=== PATIENT | female | born 1990 | race African-American/Black ===

== ENCOUNTER 2023-01-01 06:04 | Day surgery (SDC) | payer MEDICAID ==
[2022-12-31 16:13] LABS: BASOPHILS # (AUTO) 0.03 K/uL (0.00-0.20); BASOPHILS % (AUTO) 0.5 % (0.0-5.0); EOSINOPHILS # (AUTO) 0.34 K/uL (0.00-0.70); EOSINOPHILS % (AUTO) 5.2 % (0.0-8.0); HEMATOCRIT 33.9 % (36-48); IMMATURE GRANULOCYTE ABSOLUTE 0.02 K/uL (0-1); LYMPHOCYTES # (AUTO) 1.7 K/uL (1.0-4.8); LYMPHOCYTES % (AUTO) 25.5 % (21.0-51.0); MEAN CORPUSCULAR HEMOGLOBIN 29.6 pg (27.0-33.0); MEAN CORPUSCULAR HGB CONC 32.4 g/dL (32.0-36.0); MEAN CORPUSCULAR VOLUME 91.4 fL (79-99); MONOCYTES # (AUTO) 0.4 K/uL (0.1-1.0); MONOCYTES % (AUTO) 6.6 % (3.0-13.0); NEUTROPHILS % (AUTO) 61.9 % (40.0-77.0); PLATELET COUNT (AUTO) 289 K/uL (130-400); RED BLOOD CELL COUNT(AUTO) 3.71 MIL/uL (4.00-5.50); RED CELL DISTRIBUTION WIDTH 14.6 % (11.0-15.5); WHITE BLOOD COUNT (AUTO) 6.5 K/uL (4.8-10.8)
[2022-12-31 16:22] LABS: CREATININE 0.8 mg/dL (0.5-1.5); POTASSIUM 4.1 mmol/L (3.5-5.1)
[2022-12-31 16:48] VITALS: BP 100/55; PULSE 55; RESP 16
[2023-01-01] VITALS (21 sets, daily range): BP systolic 94–118; BP diastolic 59–90; PULSE 48–86; RESP 12–18
[~2023-01-01] VITALS: Ht 157.5 cm; Wt 69.8 kg
[~2023-01-01 06:04] MED LIST: MELO-108 PO; MONT-39 PO
[2023-01-01] MEDS ORDERED: CEFAZOLIN SODIUM 2 GM VIAL ONE (06:23)
[2023-01-01] MEDS ORDERED: LACTATED RINGERS 1000ML 1,000 ML IV ONE (06:23)
[2023-01-01] MEDS ORDERED: MIDAZOLAM HCL 1 MG/ML 2ML VIAL ONE (06:54)
[2023-01-01] MEDS ORDERED: PROPOFOL 10 MG/ML 20ML VIAL IV ONE (06:54)
[2023-01-01] MEDS ORDERED: FENTANYL CITRATE PF 50 MCG/1 ML 2ML VIAL ONE ×2 (06:55→07:09)
[2023-01-01] MEDS ORDERED: ROCURONIUM 10MG/1ML SYR 10 MG/ML ML ONE (06:55)
[2023-01-01] MEDS ORDERED: EPHEDRINE SULFATE 50 MG/ML AMPULE ONE (07:09)
[2023-01-01] MEDS ORDERED: ONDANSETRON 4MG INJ ONE ×2 (07:17→08:52)
[2023-01-01] MEDS ORDERED: PHENYLEPHRINE HCL 10 MG/ML 1ML VIAL IV ONE (07:35)
[2023-01-01] MEDS ORDERED: KETOROLAC 30MG VIAL (30MG/ML) ONE (07:58)
[2023-01-01] MEDS ORDERED: NEOSTIGMINE 5MG/5ML SYR IV ONE (08:11)
[2023-01-01] MEDS ORDERED: GLYCOPYRROLATE 1 MG/5 ML SYRINGE ONE (08:11)
[2023-01-01] MEDS ORDERED: MEPERIDINE-PF 25 MG/ML SYG ONE ×2 (08:52→09:37)
[2023-01-01] MEDS ORDERED: PHENTOLAMINE MESYLATE 5 MG VIAL ICAV SCH (09:00)
== END 2023-01-01 10:40 | disposition home or self-care (01) ==
LOC: DAH 06:04
PROVIDERS: ATTEND Orthopaedic Surgery
DX: M65.861 Other synovitis and tenosynovitis, right lower leg (principal); Z20.822 Contact with and (suspected) exposure to COVID-19; M22.41 Chondromalacia patellae, right knee; M79.4 Hypertrophy of (infrapatellar) fat pad; S83.241A Other tear of medial meniscus, current injury, right knee, initial encounter; S83.281A Other tear of lateral meniscus, current injury, right knee, initial encounter; F17.200 Nicotine dependence, unspecified, uncomplicated; Z82.0 Family history of epilepsy and other diseases of the nervous system; Z80.6 Family history of leukemia; Z80.42 Family history of malignant neoplasm of prostate; Z80.3 Family history of malignant neoplasm of breast; Z83.3 Family history of diabetes mellitus; Z82.49 Family history of ischemic heart disease and other diseases of the circulatory system; X58.XXXA Exposure to other specified factors, initial encounter; Y93.89 Activity, other specified; Y92.89 Other specified places as the place of occurrence of the external cause; Y99.8 Other external cause status
CPT/HCPCS: 80048; 84703; 85025; 87426; 36415; 29875; A6260; A4663; A4606; J7120; J3010 ×2; J3490 ×2; J2710; J2250; J2760; J2405 ×2; J1885; J2175 ×2; J2371; J0690; A6223; A4649 ×3; A4930; A5120; A4215; A4223; A4222; A4221; A6450; J2704